=== PATIENT | female | born 1955 | race Hispanic/Latino ===

== ENCOUNTER 2024-11-09 08:12 | Outpatient (CLI) | payer MEDICARE ==
[2024-11-09] MEDS ORDERED: Iopamidol 370 76% 100 ML VIAL ONE (09:09)
== END 2024-11-09 08:13 | disposition home or self-care (01) ==
LOC: NM 08:12
PROVIDERS: ATTEND Otolaryngology Plastic Surgery within the Head & Neck
DX: E21.3 Hyperparathyroidism, unspecified (principal); E04.1 Nontoxic single thyroid nodule; I25.10 Atherosclerotic heart disease of native coronary artery without angina pectoris
CPT/HCPCS: 36415; 70492; 78072; 82565 ×2; A9500